=== PATIENT | female | born 1975 | race Caucasian/White ===

== ENCOUNTER → 2017-01-19 | Day surgery (SDC) | payer OTHER ==
[~2017-01-19] VITALS: Ht 167.6 cm; Wt 96.2 kg
--- NOTE | 2017-01-19 11:05 | Operative Report ---
Operative/Inv Procedure Report Surgery Date: 01/19/17 Name of Procedure: Hysteroscopy, dilation and curettage, and Novasure endometrial ablation Pre-Operative Diagnosis: menorrhagia Post-Operative Diagnosis: Same Estimated Blood Loss: scant Surgeon/Patient Scheduling Manager: GINA GORDON DO Anesthesia: TIVA IV Fluids: 900 mL crystalloid Urine Output: n/a Drains: None Specimens: Endocervical curettage, endometrial curettage Complications: None Condition: Good Operative Indication: This patient is a 41-year-old 3 para 3, vasectomy for control, last menstrual period 2 weeks prior who presents with menorrhagia. She declined medical management and prefers surgical definitive management with endometrial ablation. She was counseled on the risks, benefits, alternatives of hysteroscopy, dilation curettage, NovaSure endometrial ablation including risk of bleeding, infection, uterine perforation, incomplete procedure, failed procedure and the need for additional procedure should competition occur. She stated verbal understanding and she desires to proceed. Operative/Procedure Note Note: The patient was taken to the operating room where anesthesia was obtained without difficulty. She was placed in the dorsal lithotomy position and examined under anesthesia. She had a retroverted uterus without mass. No adnexal masses were palpable. She was then prepped and draped in usual sterile fashion. A Graves speculum was placed inside the patient's vagina and a paracervical block was performed with 10 ml of 1% plain lidocaine. Tenaculum was placed on the posterior aspect of the patient's cervix and cervical length was obtained and found to be to have centimeters. Uterine sound length was obtained and found to be 9 cm. Cervical dilation was then performed using Luis dilators up to 22 Urdu. Diagnostic hysteroscopy was then performed using normal saline as distention media. Had thickened endometrium. She had normal- appearing left tubal ostia and the right tubal ostia was obscured by her endometrium. There was no obvious polyps or fibroids. Scope was removed and endocervical curettage was then obtained followed by endometrial curettage. Moderate tissue was obtained. The NovaSure procedure was then performed. The NovaSure device was then inserted without difficulty a uterine length of 6.5 cm was noted. The device was then seated and a's uterine width of 4.5 cm was then obtained. After passing the CO2 test, the device was enabled for 1 minute and 15 seconds. Once completed, all insurance removed the patient's uterus cervix and vagina and hemostasis of tenaculum sites were obtained with silver nitrate. All sponge, lap counts and needle counts were correct 2 the patient was taken to the recovery area in stable condition. Findings: Examination under anesthesia reveals a normal size retroverted uterus. Intraoperative findings revealed normal appearing left tubal ostia, right tubal ostia was obscured by endometrium, moderately thickened endometrium was noted. No polyps or fibroids were noted. Discharge Disposition: Same Day Admissions
== END ==
LOC: STS 01:47
DX: N92.0 Excessive and frequent menstruation with regular cycle (principal); N72 Inflammatory disease of cervix uteri
CPT/HCPCS: 81025; 88305; J0131; J2250